=== PATIENT | female | born 1940 | race Caucasian/White ===

== ENCOUNTER 2023-08-19 15:28 | Inpatient (IN) | payer MEDICARE, BC ==
[2023-08-19 17:06] VITALS: BMI 27.4
[2023-08-19] MEDS ORDERED: Ondansetron ODT 4 MG TAB PO PRN (19:16)
[2023-08-19] MEDS ORDERED: Ondansetron PF 4 MG/2 ML Vial IVP PRN (19:16)
[2023-08-19] MEDS ORDERED: Acetaminophen 650 MG Suppository PR PRN (19:16)
[2023-08-19] MEDS ORDERED: Nitroglycerin 0.4 MG TAB (25 Tab Bottle) SL PRN (20:10)
[2023-08-19] MEDS ORDERED: Electrolyte Replacement Protocol 1 EACH FS SCH (20:15)
[2023-08-19 20:23] LABS: Magnesium 1.9 mg/dL (1.6-2.6)
[2023-08-19] MEDS: Famotidine 20 MG TAB PO SCH (20:23)
[2023-08-19] MEDS: Enoxaparin 80 MG (0.8 mL) SYRINGE SC SCH (20:24)
[2023-08-19] MEDS: Communication Order-Pharmacy FS ONE (20:24)
[2023-08-19 20:29] LABS: Troponin I 0.016 ng/mL (< 0.028)
[2023-08-19] MEDS: Magnesium 2 GM/50 ML(in water) 2 GM in Premix 1 BAG IVPB SCH (21:02)
[2023-08-19 22:06] LABS: Bacteria/HPF None Seen HPF (None Seen); Bilirubin Negative (Negative); Blood, Urine Negative (Negative); CAUTI Indications for Culture Alt mental st,lethar; Clarity Clear (Clear); Glucose, Urine (Dipstick) Normal (Negative); Ketone, Urine Negative (Negative); Leukocyte Negative Leu/uL (Negative); Nitrite Negative (Negative); Protein, Urine (Dipstick) Negative (Neg-Trace); RBC/HPF None Seen HPF (0-3); Specific Gravity, Urine 1.007 (1.002-1.036); Squamous Epithelial 0-3 HPF (0-3); Urobilinogen Normal mg/dL (Less than 2); WBC/HPF 0-3 HPF (0-3)
[2023-08-19 22:10] LABS: Urine Culture Reflex No No
[2023-08-19] MEDS ORDERED: Fluticasone Propionate Nasal Spray 16 gm Bottle NASAL PRN (22:44)
[2023-08-19] MEDS ORDERED: Meclizine HCl 25 MG TAB PO PRN (22:44)
[2023-08-19] MEDS: Flecainide 50 MG TAB PO SCH (22:59)
[2023-08-19] MEDS: Carvedilol 6.25 MG TAB PO SCH (22:59)
[2023-08-19] MEDS: Insulin Glargine 30 UNITS/0.3 ML VIAL SC SCH (23:01)
[2023-08-19] MEDS ORDERED: Ipratropium/Albuterol 3 ML NEB NEB PRN (23:29)
[2023-08-19] MEDS: Furosemide 20 MG (2 mL) VIAL SLOW IVP SCH (23:38)
[2023-08-20] MEDS: Ipratropium/Albuterol 3 ML NEB NEB SCH (00:48)
[2023-08-20 03:54] LABS: #Basophils 0.08 10x3/uL (0.0-0.2); %Basophils 0.7 % (0.0-1.0); %Eosinophils 5.6 % (0.0-10.0); %Lymphocytes 20.6 % (21.0-51.0); %Monocytes 8.9 % (0.0-10.0); %Neutrophils 63.9 % (42.0-75.0); Hematocrit 36.7 % (36.0-47.0); Hemoglobin 11.6 g/dL (12.0-16.0); Mean Corpuscular HGB CONC 31.6 g/dL (32.0-36.0); Mean Corpuscular Hemoglobin 25.5 pg (27.0-31.0); Mean Corpuscular Volume 80.7 fL (78.0-98.0); Mean Platelet Volume 9.4 fL (7.4-10.4); Platelet Count 344 10x3/uL (130-400); RBC Distribution Width 18.8 % (11.5-14.5); Red Blood Cell (RBC) Count 4.55 mill/uL (4.20-5.40)
[2023-08-20 04:22] LABS: Hemoglobin A1c 6.9 % (4.0-6.0)
[2023-08-20 04:24] LABS: Troponin I 0.018 ng/mL (< 0.028)
[2023-08-20 04:37] LABS: Anion Gap 15 mmol/L (10-20); BUN (Urea Nitrogen) 20 mg/dL (9.8-20.1); Calc. Creatinine Clearance 42 mL/min (70-130); Calcium 8.9 mg/dL (7.8-10.44); Carbon Dioxide 25 mmol/L (23-31); Cardiac Risk 2.6 (Less than 4.5); Chloride 101 mmol/L (98-107); Cholesterol 100 mg/dl (< 200 Desired); Estimated GFR 43; Glucose 136 mg/dL (83-110); HDL Cholesterol 38 mg/dL (>60 Neg Risk); LDL Cholesterol, Calculated 46 mg/dL; Magnesium 2.4 mg/dL (1.6-2.6); Potassium 4.2 mmol/L (3.5-5.1); Sodium 137 mmol/L (136-145); Triglycerides 79 mg/dL (Less than 150)
[2023-08-20] MEDS: Flecainide Acetate 100 MG TAB PO SCH (09:00)
[2023-08-20] MEDS: Multivitamin W/ Minerals 1 TAB PO SCH (09:42)
[2023-08-20] MEDS: Icosapent Ethyl 1 GM CAPSULE PO SCH (09:42)
[2023-08-20] MEDS: Lisinopril 10 MG TAB PO SCH (09:42)
[2023-08-20] MEDS: Cholecalciferol 1,000 UNITS (25 MCG) TAB PO SCH (09:42)
[2023-08-20] MEDS: Aspirin Chewable 81 MG TAB PO SCH (09:42)
[2023-08-20] MEDS: Alogliptin 25 MG TAB PO SCH (09:42)
[2023-08-20] MEDS: Enoxaparin 80 MG (0.8 mL) SYRINGE SC SCH (09:43)
[2023-08-20] MEDS: Calcium Carbonate 600 MG TAB PO SCH (09:43)
[2023-08-20] MEDS: Pantoprazole DR 40 MG TAB PO SCH (09:43)
[2023-08-20] MEDS: Carvedilol 6.25 MG TAB PO SCH (09:43)
[2023-08-20] MEDS: Acetaminophen 325 MG TAB PO PRN (09:53)
[2023-08-20] MEDS: Furosemide 20 MG (2 mL) VIAL SLOW IVP SCH (14:05)
[2023-08-20] MEDS: Atorvastatin Calcium 40 MG TAB PO SCH (20:29)
[2023-08-20] MEDS: Insulin Glargine 30 UNITS/0.3 ML VIAL SC SCH (20:30)
[2023-08-21 04:19] LABS: #Basophils 0.07 10x3/uL (0.0-0.2); %Basophils 0.5 % (0.0-1.0); %Lymphocytes 12.8 % (21.0-51.0); %Monocytes 8.9 % (0.0-10.0); %Neutrophils 70.6 % (42.0-75.0); Hematocrit 36.7 % (36.0-47.0); Hemoglobin 11.5 g/dL (12.0-16.0); Mean Corpuscular HGB CONC 31.3 g/dL (32.0-36.0); Mean Corpuscular Hemoglobin 25.4 pg (27.0-31.0); Mean Corpuscular Volume 81.2 fL (78.0-98.0); Mean Platelet Volume 9.9 fL (7.4-10.4); Platelet Count 356 10x3/uL (130-400); RBC Distribution Width 18.6 % (11.5-14.5); Red Blood Cell (RBC) Count 4.52 mill/uL (4.20-5.40)
[2023-08-21 04:39] LABS: Anion Gap 12 mmol/L (10-20); BUN (Urea Nitrogen) 20 mg/dL (9.8-20.1); Calc. Creatinine Clearance 44 mL/min (70-130); Calcium 8.7 mg/dL (7.8-10.44); Carbon Dioxide 27 mmol/L (23-31); Chloride 100 mmol/L (98-107); Estimated GFR 45; Glucose 94 mg/dL (83-110); Potassium 3.9 mmol/L (3.5-5.1); Sodium 135 mmol/L (136-145)
[2023-08-21] MEDS: Apixaban 5 MG TAB PO SCH (09:39)
[2023-08-21] MEDS: MAGNESIUM GLYCINATE 100 MG PO SCH (19:40)
[2023-08-23] MEDS ORDERED: Ketamine In 0.9 % NaCl 50 MG/5 ML SYRINGE ONE (08:59)
[2023-08-23] MEDS ORDERED: PROPOFOL 200 MG/20 ML VIAL ONE (09:08)
[2023-08-23] MEDS ORDERED: Lidocaine 1% PF 5 ML VIAL ONE (09:08)
[2023-08-23 15:39] VITALS: BP 132/60; TEMP 98.2
== END 2023-08-23 16:55 | disposition swing bed (61) | DRG 308 ==
LOC: INTOOBSV 15:28 → 2NO 15:28 → OBSVTOIN 20:19
PROVIDERS: ADMIT Hospitalist; ATTEND Internal Medicine
PROC: 5A2204Z Restoration of Cardiac Rhythm, Single (ICD-10-PCS; principal; 2023-08-23)
DX: I48.4 Atypical atrial flutter (principal); I50.23 Acute on chronic systolic (congestive) heart failure; I13.0 Hypertensive heart and chronic kidney disease with heart failure and stage 1 through stage 4 chronic kidney disease, or unspecified chronic kidney disease; I24.89 Other forms of acute ischemic heart disease; N17.9 Acute kidney failure, unspecified; I5A Non-ischemic myocardial injury (non-traumatic); I48.91 Unspecified atrial fibrillation; N18.31 Chronic kidney disease, stage 3a; E11.22 Type 2 diabetes mellitus with diabetic chronic kidney disease; E78.5 Hyperlipidemia, unspecified; I11.0 Hypertensive heart disease with heart failure; E78.00 Pure hypercholesterolemia, unspecified; I42.9 Cardiomyopathy, unspecified; Z88.5 Allergy status to narcotic agent; Z88.8 Allergy status to other drugs, medicaments and biological substances; Z79.899 Other long term (current) drug therapy; Z79.4 Long term (current) use of insulin; Z79.82 Long term (current) use of aspirin; Z98.41 Cataract extraction status, right eye; Z98.42 Cataract extraction status, left eye; Z95.0 Presence of cardiac pacemaker; Z98.890 Other specified postprocedural states; Z95.1 Presence of aortocoronary bypass graft; Z90.49 Acquired absence of other specified parts of digestive tract; Z90.710 Acquired absence of both cervix and uterus; Z91.148 Patient's other noncompliance with medication regimen for other reason
CPT/HCPCS: 36415; 36416; 80048; 80061; 81001; 83036; 83735; 84443; 84484; 85025; 92960; 93005; 93010; 94640; 94760; J1650; J1815; J1940; J2704; J3475; J3490; J7620